=== PATIENT | male | born 1960 | race Caucasian/White ===

== ENCOUNTER 2016-07-30 22:01 | Emergency (ER) | payer MEDICARE, OTHER ==
[~2016-07-30] VITALS: Ht 170.2 cm; Wt 50.0 kg
[2016-07-30 22:04] VITALS: Ht 170.2 cm; Wt 50.0 kg
[2016-07-30] MEDS ORDERED: ONDANSETRON 4 MG INJ IV STA (22:16)
[2016-07-30] MEDS ORDERED: SOD CHLORIDE 0.9% 500 ML IV STA (22:16)
[2016-07-30] MEDS ORDERED: DICLOFENAC SODIUM 37.5 MG/ML VIAL IV STA (22:16)
[2016-07-31 01:24] LABS: ADD UMIC YES; URINE BILIRUBIN (Dip) NEGATIVE (NEGATIVE); URINE BLOOD (Dip) NEGATIVE (NEGATIVE); URINE COLOR LT. YELLOW (YELLOW); URINE GLUCOSE (Dip) NEGATIVE (NEGATIVE); URINE KETONES (Dip) NEGATIVE (NEGATIVE); URINE LEUKOCYTE ESTERASE (Dip) NEGATIVE (NEGATIVE); URINE NITRITE (Dip) NEGATIVE (NEGATIVE); URINE TOTAL PROTEIN (Dip) NEGATIVE (NEGATIVE); URINE UROBILINOGEN (Dip) 0.2 E.U./dL (0.1-1.0)
--- NOTE | 2016-07-31 01:29 | RADRPT ---
PROCEDURE: Chest x-ray. CLINICAL INDICATION: Abdominal pain. TECHNIQUE: PA view of the chest. COMPARISON: None. FINDINGS: There are irregular linear opacities in both upper lungs, suspicious for scarring. Additional mildl y prominent interstitial lung markings are noted in both lungs. A single left upper lobe bronchus w ith wall thickening is noted.. The cardiac silhouette is magnified. No pleural effusion is seen. There is no pneumothorax. No pneumoperitoneum is identified. There is a distal esophageal stent in place. The stomach is distended with air. IMPRESSION: 1. Mildly prominent interstitial lung markings, possibly representing interstitial edema, a viral c hest infection, and/or chronic lung changes. 2. Mild bilateral upper lobe scarring. 3. Wall thickening along a single left upper lobe bronchus, possibly representing acute or chronic bronchitis. 4. No pneumoperitoneum. 5. Distal esophageal stent in place. 6. Air distended stomach. RPTAT: HTAR .Benji Huston MD, Date Time Electronically viewed and signed by .Benji Huston MD, on 07/31/2016 01:28 .R/
--- NOTE | 2016-07-31 01:30 | RADRPT ---
PROCEDURE: XR Abdomen. CLINICAL INDICATION: Abdominal pain. TECHNIQUE: AP abdomen x-ray. COMPARISON: There are no similar studies submitted for comparison. FINDINGS: A percutaneous gastrostomy tube tip is within the stomach. A distal esophageal stent is noted. There is no evidence of bowel obstruction.There are no definite densities overlying the kidneys and urete rs. IMPRESSION: No evidence of bowel obstruction. RPTAT: HIKT .Shailesh Espinoza MD, MD Date Time Electronically viewed and signed by .Shailesh Espinoza MD, MD on 07/31/2016 01:29 .T/
[2016-07-31] MEDS ORDERED: NAPR-688 PO (02:17)
[2016-07-31 02:29] LABS: URINE RBCS 0-2 /HPF (0)
--- NOTE | 2016-07-31 02:29 | ERD ---
ER Documentation Chief Complaint Date/Time DATE: 07/31/16 TIME: 02:18 Chief Complaint Gtube not working properly,c/o abd pain,hx HIV,sz,psych HPI 55-year-old male presents emergency room complaining of chronic back pain as well as abdominal pain. According the paramedics she was asked to be taken to hospital that would give him Dilaudid. They also state that he know him well and see him approximately 10-11 times a month. Patient himself says he has had back pain for years and the pain is in his lower and middle back. States that he does not have medication at home for his back pain. Further questioning he denies that his G-tube is clogged states that it hurts. He does yell out that he wants Dilaudid multiple times. He denies chest pain shortness of breath nausea or vomiting. Denies any intentions of harming himself or others. ROS All systems reviewed and are negative except as per history of present illness. Medications Home Meds Active Scripts Naproxen* (Naproxen*) 500 Mg Tablet, 500 MG PO BID Y for PAIN, #20 TAB Prov:YG ERICKSON DO 07/31/16 Allergies Allergies: Coded Allergies: No Known Allergy (Unverified , 07/30/16) PMhx/Soc History of Surgery: Yes (right aka) Hx Neurological Disorder: Yes (seizure?) Hx Miscellaneous Medical Probl: Yes (hiv) Hx Alcohol Use: No Hx Substance Use: No Hx Tobacco Use: No Smoking Status: Current some day smoker Physical Exam Vitals Vital Signs Date Time Temp Pulse Resp B/P Pulse Ox O2 Delivery O2 Flow Rate FiO2 07/31/16 00:10 101 16 105/72 98 Room Air 07/30/16 22:04 98.5 110 18 104/66 98 Physical Exam Const: [] No apparent distress, very talkative Head: Atraumatic Eyes: Normal Conjunctiva ENT: Normal External Ears, Nose and Mouth. Neck: Full range of motion..~ No meningismus. Resp: Clear to auscultation bilaterally Cardio: Regular rate and rhythm, no murmurs Abd: Soft, inconsistent pain pattern, patient screams in pain before touching his abdomen however while I am talking to him and examining his G-tube to push deeply on his abdomen while he answers questions calmly without pain,, non distended. Normal bowel sounds Skin: No petechiae or rashes Back: No midline or flank tenderness, mild paraspinal tenderness bilateral Ext: No cyanosis, or edema, leg amputation with no signs of infection or bleeding of stump. Distal pulses intact all 3 extremities appear Neur: Awake and alert and oriented 3, no focal deficit Psych: Normal Mood and Affect Results 24 hrs Laboratory Tests Test 07/30/16 22:30 Urine Color LT. YELLOW Urine Clarity CLOUDY Urine pH 8.0 Urine Specific [place] 1.010 Urine Ketones NEGATIVE Urine Nitrite NEGATIVE Urine Bilirubin NEGATIVE Urine Urobilinogen 0.2 E.U./dL Urine Leukocyte Esterase NEGATIVE Urine Microscopic RBC Pending Urine Microscopic WBC Pending Urine Hemoglobin NEGATIVE Urine Glucose NEGATIVE% Urine Total Protein NEGATIVE Current Medications Medications (Trade) Dose Ordered Sig/Arpita Route PRN Reason Start Time Stop Time Status Last Admin Dose Admin Sodium Chloride (NS) 500 ml @ 500 mls/hr Q1H STAT IV 07/30/16 22:16 07/30/16 23:15 DC 07/31/16 00:00 Ondansetron HCl (Zofran Inj) 4 mg ONCE STAT IV 07/30/16 22:16 07/30/16 22:18 DC 07/31/16 00:00 Diclofenac Sodium (Dyloject) 37.5 mg ONCE STAT IV 07/30/16 22:16 07/30/16 22:18 DC 07/31/16 00:00 Procedures/MDM Patient has definite signs of drug-seeking behavior. He was given the benefit of the doubt I ordered a full workup. The patient did refuse all blood work. He submitted to x-rays which did not show any acute process except for possible bronchitis on chest x-ray. He has no respiratory distress and stable vital signs.. I personally flush his G-tube with 60 cc of sterile water and received good return with gastric contents indicating no obvious dysfunction. He has an inconsistent exam with a benign abdomen on distraction. This patient when told that he would not likely receive Dilaudid said that he must be given Ativan instead then. He was given IV diclofenac through his IV which he said did help his pain. I am going to discharge him with primary care follow-up and return precautions to the ER. I am giving him naproxen as a prescription for pain. I am also discharging with azithromycin for bronchitis. Chest x-ray interpretation: There are increased interstitial markings which may indicate bronchitis, no pneumothorax, no pulmonary edema, no f acute fractures. Abdominal x-ray interpretation: Nonspecific bowel gas pattern with no signs of obstruction and no free air. Departure Diagnosis: Primary Impression: Chronic back pain Additional Impression: Abdominal pain Condition: Stable Patient Instructions: Abdominal Pain, The Cycle of Chronic Pain Referrals: [facility] YOU HAVE RECEIVED A MEDICAL SCREENING EXAM AND THE RESULTS INDICATE THAT YOU DO NOT HAVE A CONDITION THAT REQUIRES URGENT TREATMENT IN THE EMERGENCY DEPARTMENT. FURTHER EVALUATION AND TREATMENT OF YOUR CONDITION CAN WAIT UNTIL YOU ARE SEEN IN YOUR DOCTORS OFFICE WITHIN THE NEXT 1-2 DAYS. IT IS YOUR RESPONSIBILITY TO MAKE AN APPOINTMENT FOR FOL-UP CARE. IF YOU HAVE A PRIMARY DOCTOR --you should call your primary doctor and schedule an appointment IF YOU DO NOT HAVE A PRIMARY DOCTOR YOU CAN CALL OUR PHYSICIAN REFERRAL HOTLINE AT IF YOU CAN NOT AFFORD TO SEE A PHYSICIAN YOU CAN CHOSE FROM THE FOLLOWING [facility] [address] [facility] [address] [facility] [facility] [address] [facility] [facility] [address] [facility] [address] [facility]. [facility]. [address] Additional Instructions: Call your primary care doctor TOMORROW for an appointment during the next 1-2 days.See the doctor sooner or return here if your condition worsens before your appointment time. YG ERICKSON DO Jul 31, 2016 02:29
[2016-07-31] MEDS ORDERED: AZIT250T94 PO (02:31)
[2016-07-31] MEDS ORDERED: LORAZEPAM 2 MG INJ ONE (07:25)
[2016-07-31] MEDS ORDERED: LORAZEPAM 2 MG INJ IV ONE (07:30)
[2016-07-31 07:50] VITALS: BP 99/68; PULSE 83; RESP 16; TEMP 98.5
== END 2016-07-31 08:06 | disposition home or self-care (01) ==
LOC: E/R 22:01
DX: M54.5 Low back pain (principal); F17.210 Nicotine dependence, cigarettes, uncomplicated; R40.2252 Coma scale, best verbal response, oriented, at arrival to emergency department; R40.2142 Coma scale, eyes open, spontaneous, at arrival to emergency department; R40.2362 Coma scale, best motor response, obeys commands, at arrival to emergency department
CPT/HCPCS: 71010; 74010; 81001; 96374; 96375; 99284; J2060; J2405; J7040; 81003